=== PATIENT | male | born 1960 | race Caucasian/White ===

== ENCOUNTER 2017-03-15 20:28 | Emergency (ER) | payer BC ==
[~2017-03-15] VITALS: Ht 177.8 cm; Wt 83.9 kg
[2017-03-15] MEDS ORDERED: ONDANSETRON HCL 4 MG/2 ML VIAL IV ONE (21:15)
[2017-03-15] MEDS ORDERED: HYDROmorphone HCL 2 MG/ML VL IV ONE (21:15)
[2017-03-15 23:48] VITALS: BP 130/76
[2017-03-16] MEDS ORDERED: BACITRACIN TOP OINT 1 UD PKG TOP ONE (01:30)
== END 2017-03-16 02:11 | disposition home or self-care (01) ==
LOC: EDBD 20:28 → ER 20:28
DX: S39.012A Strain of muscle, fascia and tendon of lower back, initial encounter (principal); S16.1XXA Strain of muscle, fascia and tendon at neck level, initial encounter; M25.551 Pain in right hip; M62.838 Other muscle spasm; W11.XXXA Fall on and from ladder, initial encounter; Y93.89 Activity, other specified; Y92.89 Other specified places as the place of occurrence of the external cause; Y99.8 Other external cause status
CPT/HCPCS: 72125; 72131; 73502; 96374; 96375; 99284; J1170; J2405

== ENCOUNTER 2020-01-06 05:59 | Inpatient (IN) | payer BC ==
[~2020-01-06] VITALS: Ht 177.8 cm; Wt 83.2 kg
[2020-01-06] MEDS ORDERED: SODIUM CHLORIDE 0.9% 1,000 ML IV ONE ×2 (07:02→14:30)
[2020-01-06] MEDS ORDERED: LORazepam 2MG/ML-1ML VIAL IV ONE (07:15)
[2020-01-06] MEDS ORDERED: ASPirin 81 mg TAB PO ONE (07:15)
[2020-01-06 08:09] LABS: Basophils # (auto) 0.1 10 ^3/uL (0-0.2); Basophils % (auto) 0.7 % (0.0-2.0); Eosinophils # (auto) 0.2 10 ^3/uL (0-0.8); Eosinophils % (auto) 1.7 % (0.0-7.0); Hematocrit 45.9 % (41.0-53.0); Hemoglobin 14.9 g/dL (13.5-17.5); Lymphocytes # (auto) 3.7 10 ^3/uL (0.4-5.4); Lymphocytes % (auto) 27.2 % (10.0-50.0); Mean Corpuscular Hemoglobin 32.5 pg (28.0-32.0); Mean Corpuscular Hgb Conc. 32.6 g/dL (32.0-36.0); Mean Corpuscular Volume 99.8 fL (80.0-100.0); Monocytes # (auto) 0.8 10 ^3/uL (0-1.3); Neutrophils # (auto) 8.8 10 ^3/uL (1.6-8.6); Neutrophils % (auto) 64.4 % (37.0-80.0); Nucleated Red Blood Cells % 0.1 %; Platelet Count (auto) 175 10^3/uL (140-450); Red Cell Distribution Width 13.9 % (11.8-14.3); White Blood Cell 13.7 10^3/uL (4.4-10.8)
[2020-01-06 08:20] LABS: INR 1.56 (0.9-1.15); Partial Thromboplastin Time 27.9 sec (23.0-31.2)
[2020-01-06 08:22] LABS: Albumin 2.9 g/dL (3.4-5.0); BUN/Creatinine Ratio 13.7; Calcium 8.1 mg/dL (8.5-10.1); Potassium 3.5 mmol/L (3.5-5.1)
[2020-01-06 08:27] LABS: Bilirubin, Total 1.5 mg/dL (0.2-1.0); Total Protein 6.1 g/dL (6.4-8.2)
[2020-01-06] MEDS ORDERED: MORPHINE SULF INJ 2 MG/ML SYRINGE 1ML IV PRN ×2 (14:30)
[2020-01-06] MEDS ORDERED: ONDANSETRON HCL 4 MG/2 ML VIAL IV PRN (14:30)
[2020-01-06] MEDS ORDERED: NITROGLYCERIN 0.4 MG SL TAB SL PRN (14:30)
[2020-01-06] MEDS ORDERED: LORazepam 0.5 MG TAB PO PRN (14:30)
[2020-01-06] MEDS ORDERED: HYDROcodone-ACET 5/325MG TAB PO PRN (14:30)
[2020-01-06] MEDS ORDERED: SODIUM CHLORIDE 0.9% 1,000 ML IV SCH (14:30)
[2020-01-06] MEDS ORDERED: DOCUSATE SOD 100 MG CAP PO PRN (14:30)
[2020-01-06] MEDS ORDERED: ACETAMINOPHEN 325 MG TAB PO PRN (14:30)
[2020-01-06] MEDS ORDERED: IOHEXOL 350 MG/ML 100ML IJ ONE (14:32)
[2020-01-06] MEDS ORDERED: LIOT5TAB20 PO (14:49)
[2020-01-06] MEDS ORDERED: METR0.757 EX (14:49)
[2020-01-06] MEDS ORDERED: METF-370 PO (14:49)
[2020-01-06] MEDS ORDERED: NIAC500T9 PO (14:52)
[2020-01-06] MEDS ORDERED: LEVO137T3 PO (14:53)
[2020-01-06] MEDS ORDERED: VITA400T4 PO (14:58)
[2020-01-06] MEDS ORDERED: OMEG306C OR (14:58)
[2020-01-06] MEDS ORDERED: CINN500C7 PO (14:58)
[2020-01-06] MEDS ORDERED: ASPI-498 PO (14:58)
[2020-01-06] MEDS ORDERED: TURM500C3 PO (14:58)
[2020-01-06] MEDS ORDERED: ASCO100076 PO (14:58)
[2020-01-06] MEDS ORDERED: CHOL20007 PO (14:58)
[2020-01-06 15:02] LABS: Cholesterol 75 mg/dL (< 200)
[2020-01-06 15:04] LABS: HDL Cholesterol 31 mg/dL (40-59); LDL Cholesterol 42 mg/dL (< 100); Triglycerides 72 mg/dL (< 150)
[2020-01-06] MEDS ORDERED: cefTRIAXone 1GM/50ML D5W 50 ML IV ONE (15:15)
[2020-01-06] MEDS: SODIUM CHLORIDE 0.9% 1,000 ML IV SCH (15:15)
[2020-01-06] MEDS ORDERED: ENOXAPARIN SOD 100 MG/1 ML SYRINGE SC ONE (15:30)
[2020-01-06 15:52] LABS: Urine WBC None Seen /hpf (0 - 3)
[2020-01-06] MEDS ORDERED: AZITHROMYCIN 500MG/ 250ML 250 ML IV ONE (16:00)
[2020-01-06 16:06] LABS: Urine Bacteria NONE SEEN /hpf (None Seen); Urine Blood Negative /uL (Negative); Urine Hyaline Cast FEW /lpf (0 - 2); Urine Mucus FEW (None Seen); Urine Specific Gravity 1.017 (1.001-1.035)
[2020-01-06 16:21] LABS: Alcohol, Urine < 3.0 mg/dL (0-10); Amphetamine Screen, Urine NEGATIVE (NEGATIVE); Barbiturate Scree,Urine NEGATIVE (NEGATIVE); Benzodiazephine Screen, Urine NEGATIVE (NEGATIVE); Cannabinoid Screen, Urine NEGATIVE (NEGATIVE); Cocaine Screen, Urine NEGATIVE (NEGATIVE); Opiate Scree,Urine NEGATIVE (NEGATIVE); Phencyclidine Screen, Urine NEGATIVE (NEGATIVE)
[2020-01-06 19:06] LABS: Free T3 1.84 pg/mL (2.3-4.2); Free T4 (Free Thyroxine) 1.83 ng/dL (0.89-1.76)
[2020-01-06 23:28] VITALS: BP 130/66
--- NOTE | 2020-01-06 23:28 | NUR ---
arrival note pt arrived via wheelchair. pt transferred self to hospital bed. no complaints of pain or discomfort at this time. pt provided with 2Lnc.
[2020-01-07] MEDS: SODIUM CHLORIDE 0.9% 1,000 ML IV SCH ×2 (01:31→10:35)
[2020-01-07 05:00] VITALS: BP 115/71
[2020-01-07] MEDS: LEVOTHYROXINE SODIUM 88 MCG TAB PO SCH (06:48)
--- NOTE | 2020-01-07 06:50 | NUR ---
Respiratory note: PT ASSESSED. PT IS A RULE OUT COVID. NO RESPIRATORY MEDICATIONS FROM PHARMACY UNTIL TEST RESULTS COME BACK. PT FOUND ON ROOM AIR HR 86, RR 16 SP0O2 96% B/S ARE CLEAR. PT IS IN NO DISTRESS AT THIS TIME. NO TREATMENT INDICATED AT THIS TIME. PT AWARE TO CALL IF BECOMES SOB.
--- NOTE | 2020-01-07 07:34 | NUR ---
closing note pt resting in semi fowlers with HOB at 30 degrees. pt denies pain or discomfort at this time. endorsed care to day shift SHANNON Francis.
[2020-01-07 09:00] VITALS: BP 118/71
[2020-01-07] MEDS ORDERED: cefTRIAXone 1GM/50ML D5W 50 ML IV SCH (09:00)
[2020-01-07] MEDS ORDERED: ASCORBIC ACID 500 MG TAB PO SCH (10:00)
[2020-01-07] MEDS ORDERED: CHOLECALCIFEROL (VITD3) 2,000 UNIT CAP PO SCH (10:00)
[2020-01-07] MEDS ORDERED: AZITHROMYCIN 500MG/ 250ML 250 ML IV SCH (10:00)
[2020-01-07] MEDS: ASPirin 81 mg TAB PO SCH (10:35)
[2020-01-07 13:08] VITALS: BP 114/74
[2020-01-07 13:42] LABS: Basophils # (auto) 0 10 ^3/uL (0-0.2); Basophils % (auto) 0.3 % (0.0-2.0); Eosinophils # (auto) 0.1 10 ^3/uL (0-0.8); Eosinophils % (auto) 1.6 % (0.0-7.0); Hematocrit 39.1 % (41.0-53.0); Hemoglobin 13.4 g/dL (13.5-17.5); Lymphocytes # (auto) 1.5 10 ^3/uL (0.4-5.4); Mean Corpuscular Hemoglobin 33.3 pg (28.0-32.0); Mean Corpuscular Hgb Conc. 34.2 g/dL (32.0-36.0); Mean Corpuscular Volume 97.5 fL (80.0-100.0); Monocytes # (auto) 0.5 10 ^3/uL (0-1.3); Monocytes % (auto) 8.5 % (0.0-12.0); Neutrophils # (auto) 3.2 10 ^3/uL (1.6-8.6); Neutrophils % (auto) 60.6 % (37.0-80.0); Nucleated Red Blood Cells % 0.1 %; Platelet Count (auto) 121 10^3/uL (140-450); Red Blood Cells 4.01 10^6/uL (4.5-5.90); Red Cell Distribution Width 13.3 % (11.8-14.3); White Blood Cell 5.3 10^3/uL (4.4-10.8)
[2020-01-07 14:10] LABS: Albumin 2.3 g/dL (3.4-5.0); BUN/Creatinine Ratio 14.3; Calcium 7.1 mg/dL (8.5-10.1); Magnesium 1.6 mg/dL (1.6-2.6); Potassium 3.4 mmol/L (3.5-5.1)
[2020-01-07 14:13] LABS: Bilirubin, Total 0.8 mg/dL (0.2-1.0); Total Protein 4.9 g/dL (6.4-8.2)
[2020-01-07] MEDS ORDERED: DEXTROSE (50%) 50ML SYRG IV PRN (15:30)
--- NOTE | 2020-01-07 16:19 | NUR ---
COVID RULE OUT Verbal report received from SHANNON Francis. Assumed care of patient who is awake, alert and oriented X4. No signs or symptoms of distress, shortness of breath or pain. Tele# 34, sinus rhythm @ 86 bpm. IV X2, left antecubital and right hand, both 20 gauges, patent and saline locked. Plan of care discussed with patient, verbalized understanding. Bed locked, in lowest position, call light within reach, will continue to monitor Q 1 hour and PRN.
[2020-01-07] MEDS: ACCU-CHEK COMFORT CURVE STRIP VI SCH ×2 (16:52→22:07)
[2020-01-07 17:00] VITALS: BP 126/76
[2020-01-07] MEDS: InsuLIN REG 1unit/0.01ml Soln (100units/ml) SC SCH ×2 (17:00→22:10)
[2020-01-07] MEDS ORDERED: POTASSIUM CHL 20 Meq TABLET PO ONE (17:00)
--- NOTE | 2020-01-07 19:15 | NUR ---
Care endorsed to SHANNON Barragan, night nurse.
[2020-01-07 22:00] VITALS: BP 110/63
[2020-01-07] MEDS ORDERED: ATORVASTATIN 20 MG TAB PO SCH (22:00)
[2020-01-07] MEDS: METOPROLOL TARTRATE 25 MG TAB PO SCH (22:17)
[2020-01-07] MEDS: ENOXAPARIN SOD 80 MG/0.8ML SYRINGE SC SCH (22:17)
[2020-01-08 05:00] VITALS: BP 106/68
[2020-01-08] MEDS: LEVOTHYROXINE SODIUM 88 MCG TAB PO SCH (06:24)
[2020-01-08] MEDS: ACCU-CHEK COMFORT CURVE STRIP VI SCH ×3 (06:27→16:33)
[2020-01-08] MEDS: InsuLIN REG 1unit/0.01ml Soln (100units/ml) SC SCH ×3 (06:54→16:33)
--- NOTE | 2020-01-08 07:14 | NUR ---
End of Shift Note Endorsed care to dayshift RN. At this time patient has no s/s of distress or SOB.
--- NOTE | 2020-01-08 08:02 | NUR ---
Opening Shift Note Assumed care of patient, awake and alert. No S/S of distress/SOB or pain. Instructed on POC and to call for assist PRN, will continue to monitor for changes Q1hr and PRN.
[2020-01-08 09:00] VITALS: BP 113/77
[2020-01-08] MEDS: METOPROLOL TARTRATE 25 MG TAB PO SCH (09:10)
[2020-01-08] MEDS: ENOXAPARIN SOD 80 MG/0.8ML SYRINGE SC SCH (09:10)
[2020-01-08] MEDS: ASPirin 81 mg TAB PO SCH (09:10)
[2020-01-08] MEDS ORDERED: MET25T PO (11:07)
[2020-01-08] MEDS ORDERED: ATOR10TA52 PO (11:07)
--- NOTE | 2020-01-08 11:21 | NUR ---
md estrada rounded on patient made him aware if cardiac clears him discharge order is in, called lab rn pt will be seen around 1300 for left heart cath
--- NOTE | 2020-01-08 11:42 | NUR ---
password change: JAYLIN PT called updated on plan of care
--- NOTE | 2020-01-08 12:03 | NUR ---
PT TAKEN TO TRANSFORMER INSPECTOR
[2020-01-08 13:00] VITALS: BP 116/73
[2020-01-08] MEDS ORDERED: fentaNYL CITRATE 100 MCG/2 ML VL ONE (14:29)
[2020-01-08] MEDS ORDERED: SODIUM CHL 0.9% 0 ML ONE (14:29)
[2020-01-08] MEDS ORDERED: MIDAZOLAM HCL 1MG/1ML-2 ML VIAL ONE (14:29)
[2020-01-08] MEDS ORDERED: ANGIOMAX 250 MG VIAL IV ONE (14:29)
[2020-01-08] MEDS ORDERED: IOHEXOL 350 MG/ML 100ML IJ ONE (14:30)
[2020-01-08] MEDS ORDERED: LIDOCAINE 2%HCL (LOCAL ANESTH.) INJ 20ML MDV ONE (14:30)
--- NOTE | 2020-01-08 15:17 | NUR ---
RECEIVED REPORT FROM POLE CUTTER, PT OK TO DISCHARGE HOME WHEN STABLE
--- NOTE | 2020-01-08 15:36 | NUR ---
PT BACK FROM [employer] A/OX4 NO BLEEDING OR SWELLING NOTED TO RIGHT GROIN, PATIENT AWARE TO LAY FLAT TILL 1700
--- NOTE | 2020-01-08 17:34 | NUR ---
pt discharged home requested to sit in lobby and wait for his , x2 iv removed dry pressure dressing in place, heart monitor sent to tele room, pt has RX in hand
== END 2020-01-08 17:34 | disposition home or self-care (01) | DRG 286 ==
LOC: ER 05:59 → EDBD 05:59 → TELE 06:00 → TELE-EAST 23:28 → TELE-CENTR 01-07 16:15 → TELE-EAST 01-07 16:21 → TELE-CENTR 01-07 23:55
PROVIDERS: ADMIT Hospitalist; ATTEND Internal Medicine
PROC: 4A023N7 Measurement of Cardiac Sampling and Pressure, Left Heart, Percutaneous Approach (ICD-10-PCS; principal; 2020-01-08)
PROC: B2111ZZ Fluoroscopy of Multiple Coronary Arteries using Low Osmolar Contrast (ICD-10-PCS; 2020-01-08)
PROC: B2151ZZ Fluoroscopy of Left Heart using Low Osmolar Contrast (ICD-10-PCS; 2020-01-08)
DX: R07.89 Other chest pain (principal); E43 Unspecified severe protein-calorie malnutrition; J18.9 Pneumonia, unspecified organism; N17.9 Acute kidney failure, unspecified; D68.4 Acquired coagulation factor deficiency; E03.9 Hypothyroidism, unspecified; E05.80 Other thyrotoxicosis without thyrotoxic crisis or storm; E11.22 Type 2 diabetes mellitus with diabetic chronic kidney disease; E66.9 Obesity, unspecified; E78.5 Hyperlipidemia, unspecified; E87.6 Hypokalemia; G62.9 Polyneuropathy, unspecified; N18.2 Chronic kidney disease, stage 2 (mild); Z20.828 Contact with and (suspected) exposure to other viral communicable diseases; Z68.26 Body mass index [BMI] 26.0-26.9, adult
CPT/HCPCS: 36415; 71045; 71275; 80053; 80061; 80307; 81001; 82962; 83036; 83735; 83880; 84439; 84443; 84481; 84484; 85025; 85379; 85610; 85730; 87040; 87086; 87088; 87186; 87426; 93005; 93306; 93458; 96361; 96374; 99152; G0378; J0696; J1815; J2250

== ENCOUNTER 2020-02-08 07:51 | Inpatient (IN) | payer BC ==
[~2020-02-08] VITALS: Ht 175.3 cm; Wt 82.3 kg
[~2020-02-08 07:51] MED LIST: ASCO100076 PO; ASPI-498 PO; ATOR10TA52 PO; CHOL20007 PO; CINN500C7 PO; LEVO137T3 PO; LIOT5TAB20 PO; MET25T PO; METF-370 PO; METR0.757 EX; NIAC500T9 PO; OMEG306C OR; TURM500C3 PO; VITA400T4 PO
[2020-02-08 08:38] LABS: Basophils # (auto) 0.1 10 ^3/uL (0-0.2); Basophils % (auto) 0.3 % (0.0-2.0); Eosinophils # (auto) 0.5 10 ^3/uL (0-0.8); Eosinophils % (auto) 1.9 % (0.0-7.0); Hematocrit 47.4 % (41.0-53.0); Hemoglobin 16.4 g/dL (13.5-17.5); Lymphocytes % (auto) 50.7 % (10.0-50.0); Mean Corpuscular Hemoglobin 33.6 pg (28.0-32.0); Mean Corpuscular Hgb Conc. 34.5 g/dL (32.0-36.0); Mean Corpuscular Volume 97.3 fL (80.0-100.0); Monocytes # (auto) 1.4 10 ^3/uL (0-1.3); Neutrophils # (auto) 9.8 10 ^3/uL (1.6-8.6); Neutrophils % (auto) 41.1 % (37.0-80.0); Nucleated Red Blood Cells % 0.2 %; Platelet Count (auto) 192 10^3/uL (140-450); Red Blood Cells 4.87 10^6/uL (4.5-5.90); Red Cell Distribution Width 13.5 % (11.8-14.3); White Blood Cell 23.7 10^3/uL (4.4-10.8)
[2020-02-08 09:04] LABS: Alanine Aminotransferase 41 U/L (16-61); Albumin 3.4 g/dL (3.4-5.0); Anion Gap 21 (5-15); Aspartate Aminotransferase 44 U/L (15-37); BUN/Creatinine Ratio 16.2; Blood Urea Nitrogen 18 mg/dL (7-18); Calcium 9.4 mg/dL (8.5-10.1); Carbon Dioxide 15 mmol/L (21-32); Chloride 106 mmol/L (98-107); GFR African American 87 mL/min; GFR Non-African American 72 mL/min; Glucose 73 mg/dL (74-106); Magnesium 1.6 mg/dL (1.6-2.6); Potassium 3.8 mmol/L (3.5-5.1); Sodium 142 mmol/L (136-145)
[2020-02-08 09:09] LABS: Alkaline Phosphatase 181 U/L (45-117); Bilirubin, Total 0.8 mg/dL (0.2-1.0); Total Protein 6.7 g/dL (6.4-8.2)
[2020-02-08] MEDS ORDERED: MAGNESIUM SULFATE 1GM/100ML 100 ML IV ONE (09:15)
[2020-02-08] MEDS ORDERED: PIPERACILLIN-TAZOB 3.375GM 100 ML IV ONE (10:00)
[2020-02-08] MEDS ORDERED: IOHEXOL 350 MG/ML 100ML IJ ONE (11:37)
[2020-02-08] MEDS ORDERED: SODIUM CHLORIDE 0.9% 3,000 ML IV ONE (12:30)
[2020-02-08] MEDS ORDERED: SODIUM CHLORIDE 0.9% 250 ML IV ONE (12:30)
[2020-02-08] MEDS ORDERED: SODIUM CHLORIDE 0.9% 2,000 ML IV ONE (12:30)
[2020-02-08] MEDS ORDERED: ONDANSETRON HCL 4 MG/2 ML VIAL ONE (12:56)
[2020-02-08] MEDS ORDERED: ONDANSETRON HCL 4 MG/2 ML VIAL IV ONE (13:00)
[2020-02-08] MEDS ORDERED: MORPHINE SULF INJ 2 MG/ML SYRINGE 1ML IV PRN ×2 (13:15)
[2020-02-08] MEDS ORDERED: ONDANSETRON HCL 4 MG/2 ML VIAL IV PRN (13:15)
[2020-02-08] MEDS ORDERED: NITROGLYCERIN 0.4 MG SL TAB SL PRN (13:15)
[2020-02-08] MEDS ORDERED: D5W/SOD CHLO 0.9% 1,000 ML IV SCH (13:15)
[2020-02-08] MEDS ORDERED: DOCUSATE SOD 100 MG CAP PO PRN (13:15)
[2020-02-08] MEDS ORDERED: HYDROcodone-ACET 5/325MG TAB PO PRN (13:15)
[2020-02-08] MEDS ORDERED: VANCOMYCIN PER PHARMACY 0 MG IV SCH (13:15)
[2020-02-08] MEDS ORDERED: DEXTROSE (50%) 50ML SYRG IV PRN (13:45)
[2020-02-08] MEDS ORDERED: LEVOTHYROXINE SODIUM 112 MCG TAB PO ONE (14:00)
[2020-02-08] MEDS ORDERED: LEVOTHYROXINE SODIUM 25 MCG TAB PO ONE (14:00)
[2020-02-08] MEDS: VANCOMYCIN 1GM/250ML 250 ML IV SCH (15:15)
[2020-02-08] MEDS: ACCU-CHEK COMFORT CURVE STRIP VI SCH ×2 (17:04→22:06)
[2020-02-08] MEDS: InsuLIN REG 1unit/0.01ml Soln (100units/ml) SC SCH ×2 (17:07→22:13)
[2020-02-08] MEDS: SODIUM CHLORIDE 0.9% 1,000 ML IV SCH (17:20)
[2020-02-08 17:48] LABS: Urine Bacteria NONE SEEN /hpf (None Seen); Urine Blood Negative /uL (Negative); Urine Specific Gravity 1.041 (1.001-1.035); Urine WBC <1 /hpf (0 - 3)
[2020-02-08 17:57] LABS: Alcohol, Urine < 3.0 mg/dL (0-10); Amphetamine Screen, Urine NEGATIVE (NEGATIVE); Barbiturate Scree,Urine NEGATIVE (NEGATIVE); Benzodiazephine Screen, Urine NEGATIVE (NEGATIVE); Cannabinoid Screen, Urine NEGATIVE (NEGATIVE); Cocaine Screen, Urine NEGATIVE (NEGATIVE); Opiate Scree,Urine NEGATIVE (NEGATIVE); Phencyclidine Screen, Urine NEGATIVE (NEGATIVE)
[2020-02-08 18:44] VITALS: BP 109/52
[2020-02-08 18:45] LABS: BUN/Creatinine Ratio 16.2; Calcium 7.7 mg/dL (8.5-10.1); Potassium 3.8 mmol/L (3.5-5.1)
[2020-02-08 22:00] VITALS: BP 102/61
[2020-02-08] MEDS: ATORVASTATIN 20 MG TAB PO SCH (22:06)
[2020-02-09] MEDS: SODIUM CHLORIDE 0.9% 1,000 ML IV SCH ×3 (01:52→11:30)
[2020-02-09] MEDS: VANCOMYCIN 1GM/250ML 250 ML IV SCH (01:52)
[2020-02-09 05:15] VITALS: BP 90/58
[2020-02-09] MEDS: ACCU-CHEK COMFORT CURVE STRIP VI SCH (06:19)
[2020-02-09] MEDS: InsuLIN REG 1unit/0.01ml Soln (100units/ml) SC SCH (06:28)
[2020-02-09] MEDS: ACETAMINOPHEN 500 MG TAB PO PRN (06:33)
[2020-02-09 06:55] LABS: Basophils # (auto) 0 10 ^3/uL (0-0.2); Basophils % (auto) 0.3 % (0.0-2.0); Eosinophils # (auto) 0.1 10 ^3/uL (0-0.8); Eosinophils % (auto) 1.4 % (0.0-7.0); Hematocrit 35.7 % (41.0-53.0); Hemoglobin 12.7 g/dL (13.5-17.5); Lymphocytes # (auto) 2.3 10 ^3/uL (0.4-5.4); Lymphocytes % (auto) 28.9 % (10.0-50.0); Mean Corpuscular Hemoglobin 33.8 pg (28.0-32.0); Mean Corpuscular Hgb Conc. 35.5 g/dL (32.0-36.0); Mean Corpuscular Volume 95.2 fL (80.0-100.0); Monocytes # (auto) 0.7 10 ^3/uL (0-1.3); Monocytes % (auto) 8.9 % (0.0-12.0); Neutrophils # (auto) 4.9 10 ^3/uL (1.6-8.6); Neutrophils % (auto) 60.5 % (37.0-80.0); Nucleated Red Blood Cells % 0.1 %; Platelet Count (auto) 119 10^3/uL (140-450); Red Blood Cells 3.75 10^6/uL (4.5-5.90); Red Cell Distribution Width 13.1 % (11.8-14.3); White Blood Cell 8.1 10^3/uL (4.4-10.8)
[2020-02-09] MEDS ORDERED: LEVOTHYROXINE SODIUM 112 MCG TAB PO SCH (07:00)
[2020-02-09] MEDS ORDERED: LEVOTHYROXINE SODIUM 25 MCG TAB PO SCH (07:00)
[2020-02-09 07:04] LABS: INR 1.41 (0.9-1.15); Partial Thromboplastin Time 25.4 sec (23.0-31.2)
[2020-02-09 09:00] VITALS: BP 100/55
[2020-02-09] MEDS: PANTOPRAZOLE 40 MG TAB PO SCH (10:13)
[2020-02-09 12:19] LABS: Free T3 2.77 pg/mL (2.3-4.2); Free T4 (Free Thyroxine) 2.09 ng/dL (0.89-1.76)
[2020-02-09 13:00] VITALS: BP 105/61
[2020-02-09 16:44] VITALS: BP 104/55
[2020-02-09 21:43] VITALS: BP 107/57
[2020-02-09] MEDS: ATORVASTATIN 20 MG TAB PO SCH (22:01)
[2020-02-10] MEDS: SODIUM CHLORIDE 0.9% 1,000 ML IV SCH (01:03)
[2020-02-10 05:00] VITALS: BP 116/69
[2020-02-10 06:58] LABS: Basophils # (auto) 0 10 ^3/uL (0-0.2); Basophils % (auto) 0.4 % (0.0-2.0); Eosinophils # (auto) 0.2 10 ^3/uL (0-0.8); Eosinophils % (auto) 4.4 % (0.0-7.0); Hematocrit 37.9 % (41.0-53.0); Hemoglobin 13.1 g/dL (13.5-17.5); Lymphocytes # (auto) 2.5 10 ^3/uL (0.4-5.4); Lymphocytes % (auto) 43.7 % (10.0-50.0); Mean Corpuscular Hemoglobin 33.1 pg (28.0-32.0); Mean Corpuscular Hgb Conc. 34.5 g/dL (32.0-36.0); Mean Corpuscular Volume 95.9 fL (80.0-100.0); Monocytes # (auto) 0.5 10 ^3/uL (0-1.3); Monocytes % (auto) 9.6 % (0.0-12.0); Neutrophils # (auto) 2.4 10 ^3/uL (1.6-8.6); Neutrophils % (auto) 41.9 % (37.0-80.0); Nucleated Red Blood Cells % 0.1 %; Platelet Count (auto) 120 10^3/uL (140-450); Red Blood Cells 3.95 10^6/uL (4.5-5.90); Red Cell Distribution Width 13.4 % (11.8-14.3); White Blood Cell 5.6 10^3/uL (4.4-10.8)
[2020-02-10 07:15] LABS: BUN/Creatinine Ratio 14.6; Calcium 8.1 mg/dL (8.5-10.1); Potassium 4.2 mmol/L (3.5-5.1)
[2020-02-10] MEDS: ACETAMINOPHEN 500 MG TAB PO PRN (07:24)
[2020-02-10 09:00] VITALS: BP 121/72
[2020-02-10] MEDS: PANTOPRAZOLE 40 MG TAB PO SCH (10:00)
[2020-02-10 12:15] VITALS: BP 121/72
[2020-02-10 13:00] VITALS: BP 113/65
== END 2020-02-10 13:39 | disposition home or self-care (01) | DRG 872 ==
LOC: ER 07:51 → TELE 07:52 → TELE-CENTR 17:48
PROVIDERS: ADMIT Nurse Practitioner Acute Care; ATTEND Internal Medicine
DX: A41.9 Sepsis, unspecified organism (principal); E11.9 Type 2 diabetes mellitus without complications; E78.5 Hyperlipidemia, unspecified; F41.9 Anxiety disorder, unspecified; G20 Parkinson's disease; G89.29 Other chronic pain; I10 Essential (primary) hypertension; E03.9 Hypothyroidism, unspecified; M54.5 Low back pain; R07.89 Other chest pain; E05.90 Thyrotoxicosis, unspecified without thyrotoxic crisis or storm; R00.0 Tachycardia, unspecified; Z79.899 Other long term (current) drug therapy; Z83.3 Family history of diabetes mellitus
CPT/HCPCS: 36415; 71045; 71275; 72132; 76705; 80048; 80053; 80061; 80307; 81001; 82565; 82962; 83036; 83605; 83735; 84439; 84443; 84481; 84484; 85025; 85610; 85730; 86141; 87040; 87081; 87086; 87205; 93005; 96365; 96366; 96368; G0378; J1815; J2405; J2543

== ENCOUNTER → 2020-05-12 | Outpatient (CLI) | payer BC ==
[2020-05-12 08:56] LABS: Albumin 3.2 g/dL (3.4-5.0); BUN/Creatinine Ratio 24.2; Bilirubin, Total 0.7 mg/dL (0.2-1.0); Calcium 8.4 mg/dL (8.5-10.1); Total Protein 6.7 g/dL (6.4-8.2)
== END | disposition home or self-care (01) ==
LOC: LAB 07:37
DX: E11.9 Type 2 diabetes mellitus without complications (principal); E03.9 Hypothyroidism, unspecified
CPT/HCPCS: 36415; 80053; 83036; 84436; 84443; 84480